=== PATIENT | female | born 1970 | race Caucasian/White ===

== ENCOUNTER 2021-05-01 10:58 | Inpatient (IN) | payer OTHER ==
[2021-04-27 09:35] LABS: BASOPHILS % (AUTO) 0.4 % (0-1); EOSINOPHILS # (AUTO) 0.1 X10'3 (0-0.9); EOSINOPHILS % (AUTO) 1.2 % (0-6); HEMATOCRIT 42.2 % (35.0-45.0); HEMOGLOBIN 14.4 g/dl (12.0-16.0); LYMPHOCYTES # (AUTO) 1.7 X10'3 (1.1-4.8); LYMPHOCYTES % (AUTO) 31.7 % (21-51); MEAN CORPUSCULAR HEMOGLOBIN 30.2 PG (27.0-31.0); MEAN CORPUSCULAR HGB CONC 34.1 g/dL (33.0-36.5); MEAN CORPUSCULAR VOLUME 88.7 FL (78-98); MEAN PLATELET VOLUME 8.2 FL (7.4-10.4); MONOCYTES # (AUTO) 0.5 X10'3 (0-0.9); NEUTROPHILS # (AUTO) 3.1 X10'3 (1.8-7.7); NEUTROPHILS % (AUTO) 57.7 % (42-75); PLATELET COUNT 235 X10'3 (140-440); RED BLOOD COUNT 4.75 X10'6 (4.20-5.60); RED CELL DISTRIBUTION WIDTH 14.4 % (11.5-14.5); WHITE BLOOD COUNT 5.4 X10'3 (4.5-11.0)
[2021-04-27 09:51] LABS: ALBUMIN 3.6 G/DL (3.4-5.0); ANION GAP 9 (8-16); BLOOD UREA NITROGEN 27 MG/DL (7-18); BUN/CREATININE RATIO 22.9 (6.6-38.0); CALCIUM 8.4 MG/DL (8.5-10.1); CHLORIDE 104 MMOL/L (99-107); CREATININE 1.18 MG/DL (0.40-0.90); GLUCOSE 137 MG/DL (70-104); POTASSIUM 4.1 MMOL/L (3.5-5.1); SODIUM 140 MMOL/L (135-145); eGFR 49 ML/MIN
[2021-04-27 09:55] LABS: PARTIAL THROMBOPLASTIN TIME 28 SECONDS (22-32)
[2021-05-01] VITALS (10 sets, daily range): BP systolic 103–139; BP diastolic 66–89
[~2021-05-01] VITALS: Ht 167.6 cm; Wt 89.7 kg
[2021-05-01] MEDS ORDERED: diphenhydrAMINE 25mg capsule PO PRN (11:20)
[2021-05-01] MEDS ORDERED: LIDOcaine/PRILOcaine 5gm cream TP ONE (11:20)
[2021-05-01] MEDS ORDERED: LORazepam 0.5 MG tablet PO PRN (11:20)
[2021-05-01] MEDS ORDERED: HYDR25TA5 PO (11:24)
[2021-05-01] MEDS ORDERED: IBUP-24 PO (11:24)
[2021-05-01] MEDS ORDERED: METO-395 PO (11:24)
[2021-05-01] MEDS ORDERED: ESOM20CA PO (11:24)
[2021-05-01] MEDS ORDERED: LISI40TA13 PO (11:24)
[2021-05-01] MEDS: normal saline 1,000 ML IV SCH ×2 (11:30→17:10)
[2021-05-01] MEDS ORDERED: fentaNYL/PF 50MCG/1 ML 2ML syringe ONE (11:51)
[2021-05-01] MEDS ORDERED: midazolam 1 mg/ML 2ml injection ONE (11:51)
[2021-05-01] MEDS ORDERED: LIDOcaine 1% (10mg/ml)w/preservative injection 20ml MDV ONE (11:51)
[2021-05-01] MEDS ORDERED: iohexol 350MG/ML 100ml bottle IV ONE (11:51)
[2021-05-01] MEDS ORDERED: verapamil 2.5 mg/ml inj IV ONE (12:04)
[2021-05-01] MEDS ORDERED: nitroGLYCERIN-Tridil 50MG/D5W 250 ML IV ONE (12:04)
[2021-05-01] MEDS ORDERED: heparin 1,000unit/ml 10ml vial 10 ML ONE (12:04)
[2021-05-01] MEDS ORDERED: ondansetron/PF 4mg/2ml inj IV PRN (14:05)
[2021-05-01] MEDS ORDERED: proCHLORperazine 10 MG/2 ml inj IV PRN (14:10)
[2021-05-01] MEDS ORDERED: OXAZEpam 15mg capsule PO PRN (14:10)
[2021-05-01] MEDS ORDERED: gabapentin 400mg capsule PO ONE ×2 (15:05→20:40)
[2021-05-01] MEDS ORDERED: cefazolin/dext.iso 2gm/50ml 50 ML IV ONE (15:05)
[2021-05-01] MEDS ORDERED: MESSAGE TO NURSING PO ONE ×4 (15:05)
--- NOTE | 2021-05-01 15:27 | NUR ---
Left a message for Dr. Ferro for new antibiotic prior to surgery, request per pharmacy.
--- NOTE | 2021-05-01 15:35 | NUR ---
Contacted Brandon with [facility], he is aware of patient status and will attempt to be here today.
--- NOTE | 2021-05-01 15:50 | NUR ---
Problems reprioritized. Patient report given, questions answered & plan of care reviewed with Chavez RN.
--- NOTE | 2021-05-01 16:07 | NUR ---
Pt was transferred to PCU. Radial site stable, no s/s of bleeding or infection. Pt ate 100% of lunch tray before departing. Pt was up to bathroom, x1 and voided.
--- NOTE | 2021-05-01 16:15 | NUR ---
Patient in room PCU 3011. I have received report from Cherelle BUTCHER and had the opportunity to ask questions and assume patient care.
--- NOTE | 2021-05-01 16:45 | NUR ---
Call to MD Ferro regarding antibiotic that was ordered and pt's PCN allergy MD aware of allergy and sensitivity. No orders given to change antibiotic.
[2021-05-01] MEDS ORDERED: cefazolin/dext.iso 2gm/50ml 100 ML IV ONE (16:55)
[2021-05-01 17:12] LABS: ALBUMIN 3.4 G/DL (3.4-5.0); ANION GAP 8 (8-16); BLOOD UREA NITROGEN 14 MG/DL (7-18); BUN/CREATININE RATIO 11.6 (6.6-38.0); CALCIUM 8.4 MG/DL (8.5-10.1); CHLORIDE 101 MMOL/L (99-107); CREATININE 1.21 MG/DL (0.40-0.90); GLUCOSE 136 MG/DL (70-104); SODIUM 137 MMOL/L (135-145); TOTAL CARBON DIOXIDE 27.9 MMOL/L (24-32); eGFR 47 ML/MIN
[2021-05-01 17:18] LABS: PARTIAL THROMBOPLASTIN TIME 27 SECONDS (22-32)
[2021-05-01] MEDS ORDERED: magnesium 4gm in 100ml NS 100 ML IV PRN (17:55)
[2021-05-01] MEDS ORDERED: magnesium Cl slow-release 64mg tablet PO PRN (17:55)
[2021-05-01] MEDS ORDERED: potassium Cl 40MEQ/1/2NS 520ml 520 ML IV PRN (17:55)
--- NOTE | 2021-05-01 18:00 | NUR ---
Patient in room PCU 3011. I have received report from Gabbie BUTCHER and had the opportunity to ask questions and assume patient care.
--- NOTE | 2021-05-01 18:09 | NUR ---
Problems reprioritized. Patient report given, questions answered & plan of care reviewed with jame Vasquez.
--- NOTE | 2021-05-01 18:12 | NUR ---
[place] documentation: I have reviewed and agree with all interventions, assessments performed and documented by Chavez RN. [place] Medication Administration: For this medication-pass time frame, all medication were reviewed, dispensed, administered and documented per hospital policy by Chavez RN.
[2021-05-01] MEDS: potassium Cl 20 mEq SR tablet PO PRN (18:57)
[2021-05-01] MEDS: K and/or MAG REPLACEMENT MC SCH (20:00)
[2021-05-01] MEDS ORDERED: metoprolol tartrate 12.5mg (1/2 tablet) PO SCH (20:00)
[2021-05-01] MEDS: sod chloride 0.9% 10ml flush syringe IV SCH (20:00)
[2021-05-01] MEDS ORDERED: dextrose 50%-water 50ml dispensing syringe IV PRN (20:40)
[2021-05-01] MEDS ORDERED: MALTODEXTRIN/FRUCTOSE 0.68 KCAL/ML LIQUID 296ML BOTTLE PO ONE (20:40)
[2021-05-01] MEDS ORDERED: vancomycin/NS 1 GM ADD-VANTAGE 250 ML IV ONE (20:40)
[2021-05-01] MEDS ORDERED: insulin glargine (Lantus) pen - multi-dose SQ PRN (20:40)
[2021-05-01] MEDS ORDERED: HYDROchlorothiazide 25mg tablet PO ONE (21:05)
[2021-05-01] MEDS ORDERED: lisinopril 20mg tablet PO SCH (21:05)
[2021-05-01] MEDS: mupirocin 2% nasal ointment 1gm UD NS SCH (21:50)
[2021-05-01] MEDS: HYDROchlorothiazide 25mg tablet PO SCH (21:51)
[2021-05-01] MEDS: lisinopril 20mg tablet PO SCH (21:52)
[2021-05-01 21:53] LABS: ABG BASE EXCESS -0.3 mmol/L (-2.0-2.0); ABG HCO3 23.3 mmol/L (22.0-26.0); ABG OXYGEN SATURATION 95.5 % (94-97); ABG PO2 (T) 75.6 mmHg (75.0-100.0); ALLEN'S TEST POSITIVE; FCOHb 0.3 % (0.0-3.9); FMetHb 0.2 % (0.0-1.5); TOTAL HEMOGLOBIN 14.8 G/dl (12.0-16.0)
[2021-05-01 22:36] LABS: CLARITY,URINE CLEAR (Clear); COLOR,URINE YELLOW (Yellow); GLUCOSE, URINE NEGATIVE (Neg); KETONES,URINE NEGATIVE (Neg); LEUKOCYTE ESTERASE ,URINE NEGATIVE (Neg); NITRITES, URINE NEGATIVE (Neg); OCCULT BLOOD,URINE TRACE-INTACT (Neg); PH,URINE 5.5 (4.8-8.0); PROTEIN,URINE NEGATIVE (Neg); UROBILINOGEN,URINE 0.2 E.U/dL (0.2-1.0)
[2021-05-01 22:55] LABS: UA COLLECTION TYPE CLN CATCH MIDSTREAM
[2021-05-01 22:58] LABS: BACTERIA,URINE NONE SEEN /HPF (Neg); MUCUS STRANDS NONE SEEN /LPF (Neg); RBC,URINE 0-2 /HPF (0-2); SQUAMOUS EPITHELIAL CELL,UR FEW /LPF (FEW); WBC,URINE NONE SEEN /HPF (0-4)
[2021-05-02] VITALS (19 sets, daily range): BP systolic 92–133; BP diastolic 52–77
[2021-05-02] MEDS: potassium Cl 20 mEq SR tablet PO PRN ×2 (00:26→05:26)
[2021-05-02] MEDS ORDERED: ceFAZolin 1000mg inj ONE (05:24)
[2021-05-02] MEDS ORDERED: LIDOcaine 1% (10mg/ml) 2ml vial ONE (05:24)
[2021-05-02] MEDS ORDERED: epiNEPHrine 1 mg/ml inj ONE (05:24)
[2021-05-02] MEDS ORDERED: BUPIVAcaine 0.5% inj/PF 30 ML ONE (05:25)
[2021-05-02] MEDS ORDERED: sodium bicarbonate (8.4%) 1 mEq/ml syringe ONE (05:30)
[2021-05-02] MEDS ORDERED: heparin 1,000 units/ml 10ml inj ONE (05:30)
[2021-05-02] MEDS ORDERED: aminocaproic acid 250 MG/1 ML inj. ONE (05:30)
[2021-05-02] MEDS ORDERED: methylPREDNISolone sod. succ. 500mg inj ONE (05:30)
[2021-05-02] MEDS ORDERED: albumin (human) 25% 100 ML IV solution IV ONE (05:30)
[2021-05-02] MEDS ORDERED: LORazepam 2 mg/ml vial IV ONE (06:00)
[2021-05-02] MEDS ORDERED: famotidine 20mg tablet PO ONE (06:00)
--- NOTE | 2021-05-02 06:18 | NUR ---
Patient in room PCU 3011. I have received report from DMITRIY BUTCHER and had the opportunity to ask questions and assume patient care.
[2021-05-02 06:25] LABS: BASOPHILS % (AUTO) 0.4 % (0-1); EOSINOPHILS # (AUTO) 0.1 X10'3 (0-0.9); EOSINOPHILS % (AUTO) 1.5 % (0-6); LYMPHOCYTES # (AUTO) 1.9 X10'3 (1.1-4.8); LYMPHOCYTES % (AUTO) 30.8 % (21-51); MEAN CORPUSCULAR HEMOGLOBIN 30.6 PG (27.0-31.0); MEAN CORPUSCULAR HGB CONC 33.9 g/dL (33.0-36.5); MEAN CORPUSCULAR VOLUME 90.1 FL (78-98); MEAN PLATELET VOLUME 8.7 FL (7.4-10.4); MONOCYTES # (AUTO) 0.5 X10'3 (0-0.9); MONOCYTES % (AUTO) 8.7 % (2-12); NEUTROPHILS # (AUTO) 3.7 X10'3 (1.8-7.7); NEUTROPHILS % (AUTO) 58.6 % (42-75); PRE OP HEMATOCRIT 43.2 % (35.0-45.0); PRE OP HEMOGLOBIN 14.6 g/dL (12.0-16.0); PRE OP PLATELET COUNT 227 X10'3 (140-440); RED BLOOD COUNT 4.79 X10'6 (4.20-5.60); RED CELL DISTRIBUTION WIDTH 14.6 % (11.5-14.5)
[2021-05-02 06:26] LABS: ALBUMIN 3.4 G/DL (3.4-5.0); ANION GAP 13 (8-16); BLOOD UREA NITROGEN 16 MG/DL (7-18); BUN/CREATININE RATIO 14.3 (6.6-38.0); CALCIUM 8.7 MG/DL (8.5-10.1); CHLORIDE 101 MMOL/L (99-107); CREATININE 1.12 MG/DL (0.40-0.90); GLUCOSE 127 MG/DL (70-104); MAGNESIUM 1.8 MG/DL (1.5-2.4); POTASSIUM 3.8 MMOL/L (3.5-5.1); SODIUM 138 MMOL/L (135-145); TOTAL CARBON DIOXIDE 24.1 MMOL/L (24-32); eGFR 52 ML/MIN
--- NOTE | 2021-05-02 06:30 | NUR ---
Patient in room PCU 3011. I have received report from jame Vasquez and had the opportunity to ask questions and assume patient care.
--- NOTE | 2021-05-02 06:45 | NUR ---
Problems reprioritized. Patient report given, questions answered & plan of care reviewed with Gabbie BUTCHER.
[2021-05-02] MEDS ORDERED: SUFENTANIL CITRATE 50 MCG/ML 2ml ampule IV ONE (07:34)
[2021-05-02] MEDS ORDERED: rocuronium 10mg/ml inj IV ONE ×3 (07:35→08:56)
[2021-05-02] MEDS ORDERED: propofol inj 20 ML IV ONE (07:35)
[2021-05-02] MEDS ORDERED: MIDAZolam 1 MG/ML 5ML VIAL ONE (07:35)
[2021-05-02] MEDS ORDERED: protamine sulf. 10mg/ml inj. IV ONE (07:42)
[2021-05-02] MEDS ORDERED: sevoflurane 250ml liquid IH ONE (07:42)
[2021-05-02] MEDS ORDERED: NORepinephrine 8 MG in NS 250 ML BAG (32 mcg/ml) IV ONE (07:42)
--- NOTE | 2021-05-02 07:42 | NUR ---
OR STAFF TOOK PATIENT TO CABG
[2021-05-02] MEDS: lisinopril 20mg tablet PO SCH (08:00)
[2021-05-02] MEDS: mupirocin 2% nasal ointment 1gm UD NS SCH ×2 (08:00→21:04)
[2021-05-02] MEDS ORDERED: mupirocin 2% ointment 22GM NS SCH ×2 (08:00→20:00)
[2021-05-02 08:32] LABS: ABG BASE EXCESS -2.4 mmol/L (-2.0-2.0); ABG HCO3 22.2 mmol/L (22.0-26.0); ABG OXYGEN SATURATION 98.8 % (94-97); ABG PCO2 38.1 mmHg (32.0-45.0); ABG PO2 132.8 mmHg (75.0-100.0); CL (ABG) 100 mmol/L (98-110); FCOHb 0.6 % (0.0-3.9); FMetHb 0.3 % (0.0-1.5); FO2Hb 97.9 % (94-97); GLUCOSE (ABG) 186 mg/dl (70-105); IONIZED CA (ABG) 1.16 mmol/L (1.10-1.43); K (ABG) 4.3 mmol/L (3.5-5.0); TOTAL HEMOGLOBIN 14.5 G/dl (12.0-16.0)
[2021-05-02] MEDS ORDERED: heparin 10,000 units/1 ML INJ IR ONE (09:21)
[2021-05-02] MEDS ORDERED: papaverine 30 mg/ml 2ml inj. IA ONE (09:23)
[2021-05-02 09:30] LABS: ABG BASE EXCESS VENOUS -0.5 mmol/L (-2.0 - 2.0); ABG HCO3 VENOUS 24.6 mmol/L (21.0-28.0); ABG PCO2 VENOUS 42.7 mmHg (38.0-51.0); ABG PO2 VENOUS 45.1 mmHg (25.0-35.0); CL (ABG) 97 mmol/L (98-110); FCOHb VENOUS 0.6 % (0.0- 3.9); FHHb VENOUS 18.6 %; FMetHb VENOUS 0.3 % (0.0 - 0.5); FO2Hb VENOUS 80.5 %; GLUCOSE (ABG) 143 mg/dl (70-105); IONIZED CA (ABG) 0.91 mmol/L (1.10-1.43); K (ABG) 3.8 mmol/L (3.5-5.0); TOTAL HEMOGLOBIN 9.8 G/dl (12.0-16.0)
[2021-05-02 09:34] LABS: ABG BASE EXCESS -3.2 mmol/L (-2.0-2.0); ABG HCO3 21.4 mmol/L (22.0-26.0); ABG OXYGEN SATURATION 99.4 % (94-97); ABG PCO2 36.6 mmHg (32.0-45.0); ABG PO2 356.9 mmHg (75.0-100.0); CL (ABG) 99 mmol/L (98-110); FCOHb 0.3 % (0.0-3.9); FMetHb 0.3 % (0.0-1.5); FO2Hb 98.8 % (94-97); GLUCOSE (ABG) 129 mg/dl (70-105); IONIZED CA (ABG) 0.95 mmol/L (1.10-1.43); K (ABG) 3.9 mmol/L (3.5-5.0); TOTAL HEMOGLOBIN 9.8 G/dl (12.0-16.0)
[2021-05-02] MEDS ORDERED: MESSAGE TO NURSING PO ONE (10:00)
[2021-05-02 10:02] LABS: ABG BASE EXCESS -1.4 mmol/L (-2.0-2.0); ABG HCO3 24.1 mmol/L (22.0-26.0); ABG OXYGEN SATURATION 99.4 % (94-97); ABG PCO2 43.8 mmHg (32.0-45.0); ABG PO2 304.1 mmHg (75.0-100.0); CL (ABG) 100 mmol/L (98-110); FCOHb 0.1 % (0.0-3.9); FMetHb 0.3 % (0.0-1.5); GLUCOSE (ABG) 146 mg/dl (70-105); IONIZED CA (ABG) 0.95 mmol/L (1.10-1.43); K (ABG) 4.7 mmol/L (3.5-5.0); TOTAL HEMOGLOBIN 10.7 G/dl (12.0-16.0)
[2021-05-02 10:31] LABS: ABG BASE EXCESS -1.3 mmol/L (-2.0-2.0); ABG HCO3 24.5 mmol/L (22.0-26.0); ABG OXYGEN SATURATION 99.3 % (94-97); CL (ABG) 100 mmol/L (98-110); FMetHb 0.3 % (0.0-1.5); GLUCOSE (ABG) 160 mg/dl (70-105); K (ABG) 4.6 mmol/L (3.5-5.0); TOTAL HEMOGLOBIN 10.2 G/dl (12.0-16.0)
[2021-05-02 10:58] LABS: ABG BASE EXCESS VENOUS 1.4 mmol/L (-2.0 - 2.0); ABG HCO3 VENOUS 27.4 mmol/L (21.0-28.0); ABG PCO2 VENOUS 49.8 mmHg (38.0-51.0); CL (ABG) 100 mmol/L (98-110); FCOHb VENOUS 0.5 % (0.0- 3.9); FHHb VENOUS 14.9 %; FMetHb VENOUS 0.3 % (0.0 - 0.5); FO2Hb VENOUS 84.3 %; GLUCOSE (ABG) 161 mg/dl (70-105); K (ABG) 4.3 mmol/L (3.5-5.0); TOTAL HEMOGLOBIN 9.7 G/dl (12.0-16.0)
[2021-05-02 11:01] LABS: ACTIVATED CLOTTING TIME 104 SEC (101-148)
[2021-05-02] MEDS ORDERED: metoclopramide 5 mg/ml inj IV PRN (11:20)
[2021-05-02] MEDS ORDERED: potassium CL 10mEq/100ml bag 100 ML IV PRN (11:20)
[2021-05-02] MEDS ORDERED: ondansetron/PF 4mg/2ml inj IV PRN (11:20)
[2021-05-02] MEDS ORDERED: Insulin Reg/NS 100units/100mL 100 ML IV SCH (11:20)
[2021-05-02] MEDS ORDERED: potassium Cl 20 mEq SR tablet PO PRN (11:20)
[2021-05-02] MEDS ORDERED: sodium phosphate inj. 30 MMOL in dextrose 5%-water 250 ML IV PRN (11:20)
[2021-05-02] MEDS ORDERED: NORepinephrine 8mg/ 250ml NS 250 ML IV PRN (11:20)
[2021-05-02] MEDS ORDERED: pantoprazole 40 MG vial IV ONE (11:20)
[2021-05-02] MEDS ORDERED: dextrose 50%-water 50ml dispensing syringe IV PRN (11:20)
[2021-05-02] MEDS ORDERED: acetaminophen 325mg tablet PO PRN ×2 (11:20)
[2021-05-02] MEDS ORDERED: magnesium hydroxide 30ml (MOM) UD suspension PO PRN (11:20)
[2021-05-02] MEDS ORDERED: potassium Cl 40MEQ/250ML bag 250 ML IV PRN (11:20)
[2021-05-02] MEDS ORDERED: mineral oil 133ml enema RC PRN (11:20)
[2021-05-02] MEDS ORDERED: magnesium 4gm in 100ml NS 100 ML IV PRN (11:20)
[2021-05-02] MEDS ORDERED: potassium Cl 40MEQ/1/2NS 520ml 520 ML IV PRN (11:20)
[2021-05-02] MEDS ORDERED: bisacodyl 10mg suppository rectal RC PRN (11:20)
[2021-05-02] MEDS ORDERED: magnesium citrate 296ml oral solution PO PRN (11:20)
[2021-05-02] MEDS ORDERED: niCARDipine-NS 40mg/200ml IVPB 200 ML IV PRN (11:20)
[2021-05-02] MEDS ORDERED: insulin glargine (Lantus) pen - multi-dose SQ PRN (11:20)
[2021-05-02] MEDS ORDERED: nitroGLYCERIN-Tridil 50MG/D5W 250 ML IV SCH (11:20)
[2021-05-02] MEDS ORDERED: morphine 4 MG/ML inj SYRINge IV PRN (11:20)
[2021-05-02] MEDS ORDERED: Neutra Phos packet PO PRN (11:20)
[2021-05-02 11:58] LABS: ABG BASE EXCESS -0.3 mmol/L (-2.0-2.0); ABG HCO3 25.4 mmol/L (22.0-26.0); ABG OXYGEN SATURATION 99.1 % (94-97); ABG PCO2 (T) 43.6 mmHg (32.0-45.0); ABG PO2 (T) 197.7 mmHg (75.0-100.0); FCOHb 0.4 % (0.0-3.9); FMetHb 0.3 % (0.0-1.5); FO2Hb 98.4 % (94-97); PATIENT TEMPERATURE 36.1; PEEP 5 cm H2O; RESPIRATORY RATE 12 b/min; TIDAL VOLUME 580 mL; TOTAL HEMOGLOBIN 14.2 G/dl (12.0-16.0)
--- NOTE | 2021-05-02 12:03 | NUR ---
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 Pt would benefit from nutrition therapy education once stable. Will continue to follow. Addendum: 05/02/21 at [address] Amended: Links added.
[2021-05-02 12:11] LABS: BASOPHILS % (AUTO) 0.1 % (0-1); EOSINOPHILS % (AUTO) 0.2 % (0-6); HEMATOCRIT 39.4 % (35.0-45.0); HEMOGLOBIN 13.5 g/dl (12.0-16.0); LYMPHOCYTES # (AUTO) 1.5 X10'3 (1.1-4.8); LYMPHOCYTES % (AUTO) 9.9 % (21-51); MEAN CORPUSCULAR HEMOGLOBIN 30.2 PG (27.0-31.0); MEAN CORPUSCULAR HGB CONC 34.4 g/dL (33.0-36.5); MEAN CORPUSCULAR VOLUME 87.9 FL (78-98); MEAN PLATELET VOLUME 8.2 FL (7.4-10.4); MONOCYTES # (AUTO) 0.8 X10'3 (0-0.9); MONOCYTES % (AUTO) 5.4 % (2-12); NEUTROPHILS # (AUTO) 12.4 X10'3 (1.8-7.7); NEUTROPHILS % (AUTO) 84.4 % (42-75); PLATELET COUNT 182 X10'3 (140-440); RED BLOOD COUNT 4.48 X10'6 (4.20-5.60); RED CELL DISTRIBUTION WIDTH 14.1 % (11.5-14.5); WHITE BLOOD COUNT 14.7 X10'3 (4.5-11.0)
[2021-05-02 12:23] LABS: PARTIAL THROMBOPLASTIN TIME 26 SECONDS (22-32)
[2021-05-02] MEDS: sodium chloride 0.45% 1,000 ML IV SCH (12:25)
[2021-05-02] MEDS: albumin (Human) 5% 250ml 250 ML IV PRN ×3 (12:25→16:07)
[2021-05-02 12:32] LABS: ALANINE AMINOTRANSFERASE 29 U/L (12-78); ALBUMIN/GLOBULIN RATIO 1.2 (1.1-1.5); ALKALINE PHOSPHATASE 40 IU/L (46-116); ANION GAP 9 (8-16); ASPARTATE AMINO TRANSFERASE 49 U/L (10-37); BILIRUBIN,TOTAL 0.6 MG/DL (0.1-1.0); BLOOD UREA NITROGEN 10 MG/DL (7-18); CALCIUM 6.8 MG/DL (8.5-10.1); CHLORIDE 103 MMOL/L (99-107); GLUCOSE 197 MG/DL (70-104); MAGNESIUM 1.7 MG/DL (1.5-2.4); SODIUM 138 MMOL/L (135-145); TOTAL CARBON DIOXIDE 25.7 MMOL/L (24-32); TOTAL PROTEIN 5.5 G/DL (6.4-8.2); eGFR 59 ML/MIN
[2021-05-02 12:46] LABS: POTASSIUM 4.2 MMOL/L (3.5-5.1)
[2021-05-02] MEDS: gabapentin 300mg capsule PO SCH ×2 (12:53→21:04)
[2021-05-02] MEDS: magnesium 2GM in 50ml NS 50 ML IV PRN (13:19)
[2021-05-02] MEDS: potassium Cl 20mEq/100mL bag 100 ML IV PRN (13:32)
[2021-05-02] MEDS: morphine 4 MG/ML inj SYRINge IV PRN ×2 (13:38→16:19)
[2021-05-02] MEDS: sodium phosphate inj. 15 MMOL in dextrose 5%-water 250 ML IV PRN (13:50)
[2021-05-02] MEDS: ceFAZolin/D5W- 1GM premix 50 ML IV SCH (16:42)
[2021-05-02 17:22] LABS: ABG BASE EXCESS -3.4 mmol/L (-2.0-2.0); ABG HCO3 21.7 mmol/L (22.0-26.0); ABG OXYGEN SATURATION 96.2 % (94-97); ABG PO2 (T) 86.1 mmHg (75.0-100.0); FCOHb 0.2 % (0.0-3.9); FMetHb 0.2 % (0.0-1.5); FO2Hb 95.8 % (94-97); PATIENT TEMPERATURE 36.3; PEEP 5 cm H2O; TIDAL VOLUME 561 mL; TOTAL HEMOGLOBIN 12.6 G/dl (12.0-16.0)
[2021-05-02] MEDS: ketorolac tromethamine 15mg/ml inj. IV SCH ×2 (17:25→21:05)
[2021-05-02 17:42] LABS: BASOPHILS % (AUTO) 0.1 % (0-1); EOSINOPHILS % (AUTO) 0 % (0-6); HEMATOCRIT 34.6 % (35.0-45.0); HEMOGLOBIN 11.5 g/dl (12.0-16.0); LYMPHOCYTES # (AUTO) 0.7 X10'3 (1.1-4.8); LYMPHOCYTES % (AUTO) 4.2 % (21-51); MEAN CORPUSCULAR HEMOGLOBIN 30.1 PG (27.0-31.0); MEAN CORPUSCULAR HGB CONC 33.2 g/dL (33.0-36.5); MEAN CORPUSCULAR VOLUME 90.7 FL (78-98); MEAN PLATELET VOLUME 8.1 FL (7.4-10.4); MONOCYTES # (AUTO) 0.8 X10'3 (0-0.9); MONOCYTES % (AUTO) 4.9 % (2-12); NEUTROPHILS # (AUTO) 15.1 X10'3 (1.8-7.7); NEUTROPHILS % (AUTO) 90.8 % (42-75); PLATELET COUNT 179 X10'3 (140-440); RED BLOOD COUNT 3.81 X10'6 (4.20-5.60); RED CELL DISTRIBUTION WIDTH 14.4 % (11.5-14.5); WHITE BLOOD COUNT 16.6 X10'3 (4.5-11.0)
[2021-05-02 17:59] LABS: ALANINE AMINOTRANSFERASE 31 U/L (12-78); ALBUMIN/GLOBULIN RATIO 1.7 (1.1-1.5); ALKALINE PHOSPHATASE 36 IU/L (46-116); ANION GAP 13 (8-16); ASPARTATE AMINO TRANSFERASE 47 U/L (10-37); BILIRUBIN,TOTAL 0.6 MG/DL (0.1-1.0); BLOOD UREA NITROGEN 12 MG/DL (7-18); BUN/CREATININE RATIO 8.6 (6.6-38.0); CALCIUM 6.9 MG/DL (8.5-10.1); CHLORIDE 104 MMOL/L (99-107); CREATININE 1.39 MG/DL (0.40-0.90); GLUCOSE 284 MG/DL (70-104); POTASSIUM 4.5 MMOL/L (3.5-5.1); SODIUM 138 MMOL/L (135-145); TOTAL CARBON DIOXIDE 21.1 MMOL/L (24-32); TOTAL PROTEIN 6.4 G/DL (6.4-8.2); eGFR 40 ML/MIN
--- NOTE | 2021-05-02 18:30 | NUR ---
Patient in room CICU 2007. I have received report from Sylwia BUTCHER and had the opportunity to ask questions and assume patient care.
[2021-05-02] MEDS: sod chloride 0.9% 10ml flush syringe IV SCH ×2 (18:34→21:05)
[2021-05-02] MEDS: K and/or MAG REPLACEMENT MC SCH ×2 (18:35→20:00)
[2021-05-02] MEDS: normal saline 1,000 ML IV SCH ×2 (18:36→19:22)
[2021-05-02 19:09] LABS: MAGNESIUM 3.9 MG/DL (1.5-2.4); PHOSPHORUS 3.3 MG/DL (2.3-4.5)
[2021-05-02] MEDS: Insulin Reg/NS 100units/100mL 100 ML IV SCH (19:12)
[2021-05-02] MEDS ORDERED: ketorolac tromethamine 15mg/ml inj. IV SCH (20:00)
[2021-05-02] MEDS: sennosides/docusate sodium tablet PO SCH (21:04)
[2021-05-02] MEDS: atorvastatin 10mg tablet PO SCH (21:04)
[2021-05-02] MEDS: HYDROchlorothiazide 25mg tablet PO SCH (21:04)
[2021-05-02] MEDS: oxyCODONE/APAP 10/325mg tablet PO PRN (22:45)
[2021-05-03] VITALS (24 sets, daily range): BP systolic 86–123; BP diastolic 53–75
[2021-05-03] MEDS: ketorolac tromethamine 15mg/ml inj. IV SCH ×2 (01:48→07:33)
[2021-05-03] MEDS: ceFAZolin/D5W- 1GM premix 50 ML IV SCH ×3 (01:51→15:56)
[2021-05-03] MEDS: normal saline 1,000 ML IV SCH ×3 (03:20→23:20)
[2021-05-03 03:38] LABS: BASOPHILS % (AUTO) 0.1 % (0-1); EOSINOPHILS % (AUTO) 0 % (0-6); HEMOGLOBIN 10.9 g/dl (12.0-16.0); LYMPHOCYTES # (AUTO) 0.6 X10'3 (1.1-4.8); LYMPHOCYTES % (AUTO) 3.5 % (21-51); MEAN CORPUSCULAR HEMOGLOBIN 30.3 PG (27.0-31.0); MEAN CORPUSCULAR HGB CONC 34.1 g/dL (33.0-36.5); MEAN CORPUSCULAR VOLUME 88.9 FL (78-98); MEAN PLATELET VOLUME 8.2 FL (7.4-10.4); MONOCYTES # (AUTO) 0.9 X10'3 (0-0.9); MONOCYTES % (AUTO) 4.9 % (2-12); NEUTROPHILS # (AUTO) 16.3 X10'3 (1.8-7.7); NEUTROPHILS % (AUTO) 91.5 % (42-75); PLATELET COUNT 168 X10'3 (140-440); RED CELL DISTRIBUTION WIDTH 14.3 % (11.5-14.5); WHITE BLOOD COUNT 17.8 X10'3 (4.5-11.0)
[2021-05-03] MEDS: Insulin Reg/NS 100units/100mL 100 ML IV SCH (04:16)
[2021-05-03 04:29] LABS: ALANINE AMINOTRANSFERASE 38 U/L (12-78); ALBUMIN 3.6 G/DL (3.4-5.0); ALBUMIN/GLOBULIN RATIO 1.4 (1.1-1.5); ALKALINE PHOSPHATASE 34 IU/L (46-116); ANION GAP 11 (8-16); ASPARTATE AMINO TRANSFERASE 69 U/L (10-37); BILIRUBIN,TOTAL 0.3 MG/DL (0.1-1.0); BLOOD UREA NITROGEN 13 MG/DL (7-18); BUN/CREATININE RATIO 11.1 (6.6-38.0); CALCIUM 7.2 MG/DL (8.5-10.1); CHLORIDE 103 MMOL/L (99-107); CREATININE 1.17 MG/DL (0.40-0.90); GLUCOSE 155 MG/DL (70-104); MAGNESIUM 2.6 MG/DL (1.5-2.4); POTASSIUM 4.1 MMOL/L (3.5-5.1); SODIUM 138 MMOL/L (135-145); TOTAL CARBON DIOXIDE 24.4 MMOL/L (24-32); TOTAL PROTEIN 6.2 G/DL (6.4-8.2); eGFR 49 ML/MIN
[2021-05-03] MEDS: potassium Cl 20mEq/100mL bag 100 ML IV PRN ×2 (05:36→07:35)
--- NOTE | 2021-05-03 06:34 | NUR ---
Problems reprioritized. Patient report given, questions answered & plan of care reviewed with Julián BUTCHER.
[2021-05-03] MEDS: aspirin 325mg tablet, delayed-release (Ecotrin) PO SCH (07:32)
[2021-05-03] MEDS: sennosides/docusate sodium tablet PO SCH ×2 (07:32→20:54)
[2021-05-03] MEDS: gabapentin 300mg capsule PO SCH ×3 (07:32→20:54)
[2021-05-03] MEDS: sodium phosphate inj. 15 MMOL in dextrose 5%-water 250 ML IV PRN (07:33)
[2021-05-03] MEDS: mupirocin 2% nasal ointment 1gm UD NS SCH (07:35)
[2021-05-03] MEDS: lisinopril 20mg tablet PO SCH (08:00)
[2021-05-03] MEDS: sod chloride 0.9% 10ml flush syringe IV SCH ×2 (08:00→21:01)
[2021-05-03] MEDS: K and/or MAG REPLACEMENT MC SCH ×2 (08:00→20:00)
[2021-05-03] MEDS: metoprolol tartrate 12.5mg (1/2 tablet) PO SCH ×2 (08:04→20:53)
[2021-05-03] MEDS: insulin Lispro (HumaLOG) vial - multi-dose SQ SCH ×3 (09:07→19:48)
[2021-05-03] MEDS: oxyCODONE/APAP 10/325mg tablet PO PRN ×2 (09:35→15:50)
[2021-05-03 17:22] LABS: PHOSPHORUS 3.3 MG/DL (2.3-4.5); POTASSIUM 4.4 MMOL/L (3.5-5.1)
--- NOTE | 2021-05-03 18:15 | NUR ---
Patient in room CICU 2008. I have received report from Julián BUTCHER and had the opportunity to ask questions and assume patient care.
--- NOTE | 2021-05-03 18:18 | NUR ---
Problems reprioritized. Patient report given, questions answered & plan of care reviewed with Aurelia BUTCHER.
[2021-05-03] MEDS: HYDROchlorothiazide 25mg tablet PO SCH (20:54)
[2021-05-03] MEDS: atorvastatin 10mg tablet PO SCH (20:55)
[2021-05-04] VITALS (24 sets, daily range): BP systolic 85–118; BP diastolic 47–69
[2021-05-04] MEDS: ceFAZolin/D5W- 1GM premix 50 ML IV SCH (00:15)
[2021-05-04 04:53] LABS: BASOPHILS % (AUTO) 0 % (0-1); EOSINOPHILS % (AUTO) 0 % (0-6); HEMATOCRIT 30.4 % (35.0-45.0); HEMOGLOBIN 10.2 g/dl (12.0-16.0); LYMPHOCYTES # (AUTO) 0.9 X10'3 (1.1-4.8); LYMPHOCYTES % (AUTO) 5.1 % (21-51); MEAN CORPUSCULAR HEMOGLOBIN 30.6 PG (27.0-31.0); MEAN CORPUSCULAR HGB CONC 33.5 g/dL (33.0-36.5); MEAN CORPUSCULAR VOLUME 91.3 FL (78-98); MEAN PLATELET VOLUME 8.9 FL (7.4-10.4); MONOCYTES # (AUTO) 1.1 X10'3 (0-0.9); MONOCYTES % (AUTO) 6.2 % (2-12); NEUTROPHILS % (AUTO) 88.7 % (42-75); PLATELET COUNT 139 X10'3 (140-440); RED BLOOD COUNT 3.33 X10'6 (4.20-5.60); RED CELL DISTRIBUTION WIDTH 14.7 % (11.5-14.5)
[2021-05-04 05:09] LABS: ALBUMIN 3.3 G/DL (3.4-5.0); ANION GAP 4 (8-16); BLOOD UREA NITROGEN 21 MG/DL (7-18); BUN/CREATININE RATIO 17.8 (6.6-38.0); CALCIUM 7.7 MG/DL (8.5-10.1); CHLORIDE 102 MMOL/L (99-107); CREATININE 1.18 MG/DL (0.40-0.90); GLUCOSE 163 MG/DL (70-104); MAGNESIUM 2.4 MG/DL (1.5-2.4); PHOSPHORUS 2.7 MG/DL (2.3-4.5); POTASSIUM 5.5 MMOL/L (3.5-5.1); SODIUM 135 MMOL/L (135-145); TOTAL CARBON DIOXIDE 29.1 MMOL/L (24-32); eGFR 49 ML/MIN
[2021-05-04 05:25] LABS: HEMOGLOBIN A1C 6.6 % (4.5-6.2)
[2021-05-04] MEDS: oxyCODONE/APAP 10/325mg tablet PO PRN ×3 (05:29→23:11)
[2021-05-04] MEDS: magnesium 2GM in 50ml NS 50 ML IV PRN (05:29)
--- NOTE | 2021-05-04 06:26 | NUR ---
Problems reprioritized. Patient report given, questions answered & plan of care reviewed with Julián BUTCHER.
[2021-05-04] MEDS: gabapentin 300mg capsule PO SCH (07:27)
[2021-05-04] MEDS: aspirin 325mg tablet, delayed-release (Ecotrin) PO SCH (07:27)
[2021-05-04] MEDS: metoprolol tartrate 12.5mg (1/2 tablet) PO SCH ×2 (07:27→21:17)
[2021-05-04] MEDS: sennosides/docusate sodium tablet PO SCH ×2 (07:27→20:00)
[2021-05-04] MEDS: pantoprazole 40mg Tablet.DR PO SCH (07:27)
[2021-05-04] MEDS: lisinopril 20mg tablet PO SCH (08:00)
[2021-05-04] MEDS: K and/or MAG REPLACEMENT MC SCH ×2 (08:00→20:00)
[2021-05-04] MEDS: sod chloride 0.9% 10ml flush syringe IV SCH ×2 (08:00→20:00)
[2021-05-04] MEDS: insulin Lispro (HumaLOG) vial - multi-dose SQ SCH ×3 (08:09→18:20)
[2021-05-04] MEDS: insulin glargine (Lantus) pen - multi-dose SQ SCH (08:10)
[2021-05-04] MEDS ORDERED: furosemide 40mg/4ml inj IV ONE (09:15)
[2021-05-04] MEDS: normal saline 1,000 ML IV SCH ×2 (09:20→19:20)
[2021-05-04] MEDS: sodium chloride 0.45% 1,000 ML IV SCH (11:20)
--- NOTE | 2021-05-04 12:15 | NUR ---
Patient offered milk of magnesia for POD 2 bowel regimen; patient reports she is "gassy and would like to hold off for now."
[2021-05-04] MEDS: Insulin Reg/NS 100units/100mL 100 ML IV SCH (15:20)
[2021-05-04] MEDS: atorvastatin 10mg tablet PO SCH (21:16)
[2021-05-04] MEDS: HYDROchlorothiazide 25mg tablet PO SCH (21:18)
[2021-05-05] VITALS (16 sets, daily range): BP systolic 90–122; BP diastolic 47–70
[2021-05-05 03:44] LABS: BASOPHILS % (AUTO) 0.1 % (0-1); EOSINOPHILS % (AUTO) 0.1 % (0-6); HEMATOCRIT 30.6 % (35.0-45.0); HEMOGLOBIN 10.3 g/dl (12.0-16.0); LYMPHOCYTES # (AUTO) 2.4 X10'3 (1.1-4.8); MEAN CORPUSCULAR HEMOGLOBIN 30.1 PG (27.0-31.0); MEAN CORPUSCULAR HGB CONC 33.6 g/dL (33.0-36.5); MEAN CORPUSCULAR VOLUME 89.4 FL (78-98); MEAN PLATELET VOLUME 8.3 FL (7.4-10.4); MONOCYTES # (AUTO) 1.3 X10'3 (0-0.9); MONOCYTES % (AUTO) 7.9 % (2-12); NEUTROPHILS # (AUTO) 12.4 X10'3 (1.8-7.7); NEUTROPHILS % (AUTO) 76.9 % (42-75); PLATELET COUNT 173 X10'3 (140-440); RED BLOOD COUNT 3.42 X10'6 (4.20-5.60); RED CELL DISTRIBUTION WIDTH 14.7 % (11.5-14.5); WHITE BLOOD COUNT 16.1 X10'3 (4.5-11.0)
[2021-05-05 03:58] LABS: ALBUMIN 3.2 G/DL (3.4-5.0); ANION GAP 5 (8-16); BLOOD UREA NITROGEN 37 MG/DL (7-18); BUN/CREATININE RATIO 26.8 (6.6-38.0); CALCIUM 7.8 MG/DL (8.5-10.1); CHLORIDE 99 MMOL/L (99-107); CREATININE 1.38 MG/DL (0.40-0.90); GLUCOSE 113 MG/DL (70-104); POTASSIUM 4.6 MMOL/L (3.5-5.1); SODIUM 135 MMOL/L (135-145); TOTAL CARBON DIOXIDE 30.6 MMOL/L (24-32); eGFR 41 ML/MIN
[2021-05-05] MEDS: oxyCODONE/APAP 10/325mg tablet PO PRN ×3 (04:35→17:57)
[2021-05-05] MEDS: normal saline 1,000 ML IV SCH (05:20)
[2021-05-05] MEDS: sennosides/docusate sodium tablet PO SCH ×2 (06:24→20:17)
[2021-05-05 06:31] LABS: MAGNESIUM 2.4 MG/DL (1.5-2.4); PHOSPHORUS 4.2 MG/DL (2.3-4.5)
[2021-05-05] MEDS: pantoprazole 40mg Tablet.DR PO SCH (07:58)
[2021-05-05] MEDS: metoprolol tartrate 12.5mg (1/2 tablet) PO SCH ×2 (07:58→20:15)
[2021-05-05] MEDS: aspirin 325mg tablet, delayed-release (Ecotrin) PO SCH (07:58)
[2021-05-05] MEDS: sod chloride 0.9% 10ml flush syringe IV SCH ×2 (07:59→20:00)
[2021-05-05] MEDS: K and/or MAG REPLACEMENT MC SCH ×2 (08:00→20:00)
[2021-05-05] MEDS: insulin Lispro (HumaLOG) vial - multi-dose SQ SCH ×3 (08:24→20:20)
[2021-05-05] MEDS: insulin glargine (Lantus) pen - multi-dose SQ SCH (08:25)
[2021-05-05] MEDS ORDERED: magnesium 4gm in 100ml NS 100 ML IV PRN (09:10)
[2021-05-05] MEDS ORDERED: potassium Cl 40MEQ/250ML bag 250 ML IV PRN (09:10)
[2021-05-05] MEDS ORDERED: potassium Cl 20 mEq SR tablet PO PRN (09:10)
[2021-05-05] MEDS ORDERED: diphenhydrAMINE 25mg capsule PO PRN (09:10)
[2021-05-05] MEDS ORDERED: potassium Cl 40MEQ/1/2NS 520ml 520 ML IV PRN (09:10)
[2021-05-05] MEDS ORDERED: potassium Cl 20mEq/100mL bag 100 ML IV PRN (09:10)
[2021-05-05] MEDS ORDERED: magnesium 2GM in 50ml NS 50 ML IV PRN (09:10)
[2021-05-05] MEDS ORDERED: potassium CL 10mEq/100ml bag 100 ML IV PRN (09:10)
--- NOTE | 2021-05-05 10:58 | NUR ---
Patient in room CICU 2008. I have received report from Julián BUTCHER and had the opportunity to ask questions and assume patient care.
--- NOTE | 2021-05-05 11:00 | NUR ---
Problems reprioritized. Patient report given, questions answered & plan of care reviewed with Irma BUTCHER.
--- NOTE | 2021-05-05 13:30 | NUR ---
Patient oriented to room. Call light within reach. Will continue to monitor. Vital signs documented in routine vital signs interventions.
--- NOTE | 2021-05-05 13:30 | NUR ---
Patient sent to [facility] 3011 with all belongings
--- NOTE | 2021-05-05 18:34 | NUR ---
Problems reprioritized. Patient report given, questions answered & plan of care reviewed with Virginia BUTCHER. Patient stable at transfer of care.
[2021-05-05] MEDS: potassium Cl 20 mEq SR tablet PO SCH (20:00)
[2021-05-05] MEDS: magnesium Cl slow-release 64mg tablet PO SCH (20:00)
[2021-05-05] MEDS: HYDROchlorothiazide 25mg tablet PO SCH (20:34)
[2021-05-05] MEDS: atorvastatin 10mg tablet PO SCH (20:34)
[2021-05-06 02:00] VITALS: BP 108/74
[2021-05-06] MEDS: oxyCODONE/APAP 10/325mg tablet PO PRN ×2 (02:03→07:43)
[2021-05-06 06:00] VITALS: BP 125/57
--- NOTE | 2021-05-06 07:03 | NUR ---
Patient in room PCU 3011. I have received report from Rachel BUTCHER and had the opportunity to ask questions and assume patient care.
[2021-05-06 07:23] LABS: ALBUMIN 3.7 G/DL (3.4-5.0); ANION GAP 10 (8-16); BLOOD UREA NITROGEN 33 MG/DL (7-18); BUN/CREATININE RATIO 24.1 (6.6-38.0); CALCIUM 8.7 MG/DL (8.5-10.1); CHLORIDE 94 MMOL/L (99-107); CREATININE 1.37 MG/DL (0.40-0.90); GLUCOSE 113 MG/DL (70-104); PHOSPHORUS 4.7 MG/DL (2.3-4.5); POTASSIUM 3.4 MMOL/L (3.5-5.1); SODIUM 135 MMOL/L (135-145); TOTAL CARBON DIOXIDE 31.3 MMOL/L (24-32); eGFR 41 ML/MIN
--- NOTE | 2021-05-06 07:27 | NUR ---
Problems reprioritized. Patient report given, questions answered & plan of care reviewed with Irma BUTCHER.
[2021-05-06 07:38] LABS: BASOPHILS % (AUTO) 0.1 % (0-1); EOSINOPHILS # (AUTO) 0.2 X10'3 (0-0.9); EOSINOPHILS % (AUTO) 1.5 % (0-6); HEMATOCRIT 39.3 % (35.0-45.0); HEMOGLOBIN 13.2 g/dl (12.0-16.0); LYMPHOCYTES % (AUTO) 22.7 % (21-51); MEAN CORPUSCULAR HEMOGLOBIN 30.2 PG (27.0-31.0); MEAN CORPUSCULAR HGB CONC 33.5 g/dL (33.0-36.5); MEAN CORPUSCULAR VOLUME 90.2 FL (78-98); MEAN PLATELET VOLUME 8.5 FL (7.4-10.4); MONOCYTES % (AUTO) 7.7 % (2-12); NEUTROPHILS # (AUTO) 9.1 X10'3 (1.8-7.7); PLATELET COUNT 290 X10'3 (140-440); RED BLOOD COUNT 4.35 X10'6 (4.20-5.60); RED CELL DISTRIBUTION WIDTH 14.9 % (11.5-14.5); WHITE BLOOD COUNT 13.4 X10'3 (4.5-11.0)
[2021-05-06] MEDS: sennosides/docusate sodium tablet PO SCH (07:43)
[2021-05-06] MEDS: potassium Cl 20 mEq SR tablet PO SCH (07:43)
[2021-05-06] MEDS: aspirin 325mg tablet, delayed-release (Ecotrin) PO SCH (07:43)
[2021-05-06] MEDS: magnesium Cl slow-release 64mg tablet PO SCH (07:43)
[2021-05-06] MEDS: pantoprazole 40mg Tablet.DR PO SCH (07:44)
[2021-05-06 07:45] VITALS: BP_SYST 125
[2021-05-06] MEDS: metoprolol tartrate 12.5mg (1/2 tablet) PO SCH (07:45)
[2021-05-06] MEDS: sod chloride 0.9% 10ml flush syringe IV SCH (07:50)
[2021-05-06] MEDS: K and/or MAG REPLACEMENT MC SCH (07:51)
[2021-05-06] MEDS ORDERED: diphenhydrAMINE 25mg capsule PO PRN (07:55)
[2021-05-06] MEDS ORDERED: LOP12.5T PO (09:29)
[2021-05-06] MEDS ORDERED: ATOR10TA PO (09:29)
[2021-05-06] MEDS ORDERED: ASPI-1071 PO (09:29)
[2021-05-06] MEDS ORDERED: OXYC1TAB17 PO ×2 (09:29)
[2021-05-06] MEDS ORDERED: TRAM50TA2 PO (10:11)
--- NOTE | 2021-05-06 11:29 | NUR ---
Patient safe for discharge per providers orders. Medications and discharge instructions discussed. Belongings sent with patient. PIV discontinued cannula intact. Telemetry discontinued. Patient wheeled to lobby by nursing staff. Went home in private vehicle with spouse.
--- NOTE | 2021-05-06 14:04 | NUR ---
F/u: Pt discharged prior to RD visit. RD called pt home phone provided in EMR and provided verbal CABG ed to pt. Written CABG/HH diet eds w/ RD contact information mailed to pt home address provided in EMR. RD encouraged pt to contact dietitian's office if further questions/concerns. Addendum: 05/06/21 at [address] Amended: Links added.
== END 2021-05-06 11:36 | disposition home or self-care (01) | DRG 233 ==
LOC: SSTAY O 10:58 → PCU 3S 15:11 → CICU 2S 05-02 11:46 → PCU 3S 05-05 13:23
PROVIDERS: ADMIT Thoracic Surgery (Cardiothoracic Vascular Surgery); ATTEND Thoracic Surgery (Cardiothoracic Vascular Surgery)
PROC: 4A023N7 Measurement of Cardiac Sampling and Pressure, Left Heart, Percutaneous Approach (ICD-10-PCS; 2021-05-01)
PROC: B2111ZZ Fluoroscopy of Multiple Coronary Arteries using Low Osmolar Contrast (ICD-10-PCS; 2021-05-01)
PROC: B2151ZZ Fluoroscopy of Left Heart using Low Osmolar Contrast (ICD-10-PCS; 2021-05-01)
PROC: 021209W Bypass Coronary Artery, Three Arteries from Aorta with Autologous Venous Tissue, Open Approach (ICD-10-PCS; 2021-05-02)
PROC: 06BQ4ZZ Excision of Left Saphenous Vein, Percutaneous Endoscopic Approach (ICD-10-PCS; 2021-05-02)
PROC: 5A1221Z Performance of Cardiac Output, Continuous (ICD-10-PCS; 2021-05-02)
PROC: B24BZZ4 Ultrasonography of Heart with Aorta, Transesophageal (ICD-10-PCS; 2021-05-02)
PROC: 02100Z9 Bypass Coronary Artery, One Artery from Left Internal Mammary, Open Approach (ICD-10-PCS; principal; 2021-05-02 07:42)
DX: I25.110 Atherosclerotic heart disease of native coronary artery with unstable angina pectoris (principal); N17.0 Acute kidney failure with tubular necrosis; L29.9 Pruritus, unspecified; N18.30 Chronic kidney disease, stage 3 unspecified; I12.9 Hypertensive chronic kidney disease with stage 1 through stage 4 chronic kidney disease, or unspecified chronic kidney disease; Z20.822 Contact with and (suspected) exposure to COVID-19; E66.9 Obesity, unspecified; K21.9 Gastro-esophageal reflux disease without esophagitis; Z88.0 Allergy status to penicillin; Z68.31 Body mass index [BMI] 31.0-31.9, adult; Z88.5 Allergy status to narcotic agent
CPT/HCPCS: 93312; 93325; 93458; Z7506; Z7508; 36415; 36600; 71045; 80048; 80053; 81001; 82330; 82435; 82803; 82947; 82948; 83036; 83735; 84100; 84132; 84295; 85018; 85025; 85347; 85610; 85730; 86885; 86900; 86901; 86920; 87081; 87635; 93005; 93880; 93971; 94002; 94010; 94760; 97116; 97161; 97530; 97535; 99152; A4618; A4620; A6258; A6446; A6449; A7000; A7048; C1751; C1769; C1894; C9113; G0378; J0171; J0690; J1644; J1815; J1885; J1940; J2001; J2060; J2150; J2250; J2270; J2405; J2440; J2704; J2720; J2930; J3010; J3370; J3475; J3480; J3490; J7030; J7040; J7050; J7060; J7120; P9045; P9047; Q0163; Q9967

== ENCOUNTER 2021-05-13 21:33 | Emergency (ER) | payer OTHER ==
[~2021-05-13] VITALS: Ht 167.6 cm; Wt 93.6 kg
[~2021-05-13 21:33] MED LIST: ASPI-1071 PO; ATOR10TA PO; ESOM20CA PO; HYDR25TA5 PO; IBUP-24 PO; LOP12.5T PO; TRAM50TA2 PO
[2021-05-13 22:34] LABS: BASOPHILS % (AUTO) 0.5 % (0-1); EOSINOPHILS # (AUTO) 0.1 X10'3 (0-0.9); EOSINOPHILS % (AUTO) 1.5 % (0-6); HEMATOCRIT 31.5 % (35.0-45.0); HEMOGLOBIN 10.7 g/dl (12.0-16.0); LYMPHOCYTES # (AUTO) 1.6 X10'3 (1.1-4.8); LYMPHOCYTES % (AUTO) 20.9 % (21-51); MEAN CORPUSCULAR HEMOGLOBIN 30.3 PG (27.0-31.0); MEAN CORPUSCULAR VOLUME 89.1 FL (78-98); MEAN PLATELET VOLUME 8.1 FL (7.4-10.4); MONOCYTES # (AUTO) 0.4 X10'3 (0-0.9); MONOCYTES % (AUTO) 5.6 % (2-12); NEUTROPHILS # (AUTO) 5.6 X10'3 (1.8-7.7); NEUTROPHILS % (AUTO) 71.5 % (42-75); PLATELET COUNT 215 X10'3 (140-440); RED BLOOD COUNT 3.54 X10'6 (4.20-5.60); RED CELL DISTRIBUTION WIDTH 14.6 % (11.5-14.5); WHITE BLOOD COUNT 7.9 X10'3 (4.5-11.0)
[2021-05-13 22:45] LABS: ALANINE AMINOTRANSFERASE 30 U/L (12-78); ALBUMIN 3.2 G/DL (3.4-5.0); ALBUMIN/GLOBULIN RATIO 0.9 (1.1-1.5); ALKALINE PHOSPHATASE 66 IU/L (46-116); ANION GAP 11 (8-16); ASPARTATE AMINO TRANSFERASE 21 U/L (10-37); BILIRUBIN,TOTAL 0.3 MG/DL (0.1-1.0); BLOOD UREA NITROGEN 24 MG/DL (7-18); CALCIUM 8.2 MG/DL (8.5-10.1); CHLORIDE 101 MMOL/L (99-107); CREATININE 1.26 MG/DL (0.40-0.90); GLUCOSE 170 MG/DL (70-104); POTASSIUM 3.4 MMOL/L (3.5-5.1); SODIUM 137 MMOL/L (135-145); TOTAL PROTEIN 6.7 G/DL (6.4-8.2); eGFR 45 ML/MIN
[2021-05-13] MEDS ORDERED: iohexol 350MG/ML 100ml bottle IV ONE (23:48)
--- NOTE | 2021-05-14 01:12 | NUR ---
trop taken to lab.
[2021-05-14 02:49] VITALS: BP 140/86
== END 2021-05-14 02:48 | disposition home or self-care (01) ==
LOC: ER 21:35
DX: J90 Pleural effusion, not elsewhere classified (principal); R07.89 Other chest pain; R42 Dizziness and giddiness; R53.1 Weakness; Z95.1 Presence of aortocoronary bypass graft; Z88.0 Allergy status to penicillin; Z88.8 Allergy status to other drugs, medicaments and biological substances; Z79.82 Long term (current) use of aspirin; Z79.899 Other long term (current) drug therapy
CPT/HCPCS: 36415; 71045; 71275; 76604; 80053; 83880; 84484; 85025; 93005; 99285; Q9967

== ENCOUNTER 2023-10-24 10:29 | Day surgery (SDC) | payer BC, OTHER ==
[2023-10-17 08:55] LABS: BASOPHILS % (AUTO) 0.5 % (0-1); EOSINOPHILS # (AUTO) 0.1 X10'3 (0-0.9); EOSINOPHILS % (AUTO) 1.5 % (0-6); HEMATOCRIT 44.5 % (35.0-45.0); HEMOGLOBIN 15.2 g/dl (12.0-16.0); LYMPHOCYTES % (AUTO) 32.8 % (21-51); MEAN CORPUSCULAR HEMOGLOBIN 30.9 PG (27.0-31.0); MEAN CORPUSCULAR VOLUME 90.7 FL (78-98); MEAN PLATELET VOLUME 7.6 FL (7.4-10.4); MONOCYTES # (AUTO) 0.5 X10'3 (0-0.9); MONOCYTES % (AUTO) 8.7 % (2-12); NEUTROPHILS # (AUTO) 3.4 X10'3 (1.8-7.7); NEUTROPHILS % (AUTO) 56.5 % (42-75); PLATELET COUNT 223 X10'3 (140-440); RED BLOOD COUNT 4.91 X10'6 (4.20-5.60); RED CELL DISTRIBUTION WIDTH 13.7 % (11.5-14.5)
[2023-10-17 09:13] LABS: APTT 29 SECONDS (22-32); INR 0.9 INR
[2023-10-17 09:14] LABS: ALANINE AMINOTRANSFERASE 68 U/L (12-78); ALBUMIN 3.7 G/DL (3.4-5.0); ALBUMIN/GLOBULIN RATIO 0.9 (1.1-1.5); ALKALINE PHOSPHATASE 94 IU/L (46-116); ANION GAP 8 (8-16); ASPARTATE AMINO TRANSFERASE 25 U/L (10-37); BILIRUBIN,TOTAL 0.7 MG/DL (0.1-1.0); BLOOD UREA NITROGEN 19 MG/DL (7-18); CALCIUM 8.9 MG/DL (8.5-10.1); CHLORIDE 100 MMOL/L (99-107); CHOL/HDL RATIO 3.7 (0.00-4.99); CHOLESTEROL 183 MG/DL (0-200); CREATININE 1.12 MG/DL (0.40-0.90); GLUCOSE 176 MG/DL (70-104); HDL CHOLESTEROL 50 MG/DL (35-60); LDL CHOLESTEROL 108 MG/DL (50-100); POTASSIUM 3.9 MMOL/L (3.5-5.1); SODIUM 136 MMOL/L (135-145); TOTAL CARBON DIOXIDE 28.4 MMOL/L (24-32); TOTAL PROTEIN 7.6 G/DL (6.4-8.2); TRIGLYCERIDES 107 MG/DL (20-135); eGFR 51 ML/MIN
[~2023-10-24] VITALS: Ht 167.6 cm; Wt 94.3 kg
[2023-10-24] VITALS (8 sets, daily range): BP systolic 101–127; BP diastolic 61–96; PULSE 56–71; RESP 9–16; TEMP 98.4; O2SAT 93–100
[~2023-10-24 10:29] MED LIST changes: -TRAM50TA2 PO
[2023-10-24] MEDS ORDERED: LOP12.5T PO (10:58)
[2023-10-24] MEDS ORDERED: ATOR40TA72 PO (10:58)
[2023-10-24] MEDS ORDERED: LISI40TA13 PO (10:58)
[2023-10-24] MEDS ORDERED: NITR0.4T51 SL (10:58)
[2023-10-24] MEDS ORDERED: RANO10005 PO (10:58)
[2023-10-24] MEDS ORDERED: CLOP75TA34 PO (10:58)
[2023-10-24] MEDS ORDERED: normal saline 1,000 ML IV SCH (11:00)
[2023-10-24] MEDS ORDERED: LORazepam 0.5 MG tablet PO PRN (11:00)
[2023-10-24] MEDS ORDERED: diphenhydrAMINE 25mg capsule PO PRN (11:00)
[2023-10-24] MEDS ORDERED: ASPI81TA52 PO (11:01)
[2023-10-24] MEDS ORDERED: iohexol 350MG/ML 100ml bottle IV ONE ×3 (12:16→13:25)
[2023-10-24] MEDS ORDERED: LIDOcaine 1% 30ml preserv. free vial ONE (12:16)
[2023-10-24] MEDS ORDERED: midazolam 1 mg/ML 2ml injection ONE (12:16)
[2023-10-24] MEDS ORDERED: fentaNYL/PF 50MCG/1 ML 2ML syringe ONE (12:16)
[2023-10-24] MEDS ORDERED: heparin 1,000unit/ml 10ml vial 10 ML ONE (13:06)
[2023-10-24] MEDS ORDERED: atropine 0.1mg/ml 10ml syringe ONE (13:26)
[2023-10-24] MEDS ORDERED: nitroGLYCERIN 0.4mg SUBLingual tab SL ONE (14:00)
[2023-10-24] MEDS ORDERED: HYDROcodone/acetaminophen 10/325mg tab PO PRN (15:15)
[2023-10-24] MEDS ORDERED: proCHLORperazine 10 MG/2 ml inj IV PRN (15:15)
[2023-10-24] MEDS ORDERED: nitroGLYCERIN 0.4mg SUBLingual tab SL PRN (15:15)
[2023-10-24] MEDS ORDERED: ondansetron/PF 4mg/2ml inj IV PRN (15:15)
[2023-10-24] MEDS ORDERED: HYDROcodone/acetaminophen 5mg/325mg tablet PO PRN (15:15)
[2023-10-24] MEDS ORDERED: OXAZEpam 15mg capsule PO PRN (15:15)
== END 2023-10-24 17:30 | disposition home or self-care (01) ==
LOC: SSTAY O 10:29
PROVIDERS: ATTEND Student in an Organized Health Care Education/Training Program
DX: R07.89 Other chest pain (principal); T82.855A Stenosis of coronary artery stent, initial encounter; I25.10 Atherosclerotic heart disease of native coronary artery without angina pectoris; I10 Essential (primary) hypertension; E78.5 Hyperlipidemia, unspecified; Z91.040 Latex allergy status; Z88.0 Allergy status to penicillin; Z88.5 Allergy status to narcotic agent; Z79.899 Other long term (current) drug therapy; Z79.82 Long term (current) use of aspirin; Z79.01 Long term (current) use of anticoagulants
CPT/HCPCS: 36415; 80053; 80061; 85025; 85610; 85730; 93005; 93458; 99152; 99153; C1874; C9600; J0461; J1644; J2250; J3010; J3490; J7030; Q0163; Q9967; A6258; C1725; C1751; C1760; C1769

== ENCOUNTER 2024-02-29 19:05 | Inpatient (IN) | payer OTHER ==
[~2024-02-29] VITALS: Ht 167.6 cm; Wt 93.2 kg
[~2024-02-29 19:05] MED LIST changes: -ASPI-1071 PO; +ASPI81TA52 PO; -ATOR10TA PO; +ATOR40TA72 PO; +CLOP75TA34 PO; -HYDR25TA5 PO; +LISI40TA13 PO; +NITR0.4T51 SL; +RANO10005 PO
[2024-02-29 19:30] LABS: BASOPHILS % (AUTO) 0.3 % (0-1); EOSINOPHILS % (AUTO) 0.3 % (0-6); HEMATOCRIT 43.5 % (35.0-45.0); HEMOGLOBIN 14.7 g/dl (12.0-16.0); LYMPHOCYTES # (AUTO) 1.6 X10'3 (1.1-4.8); LYMPHOCYTES % (AUTO) 14.2 % (21-51); MEAN CORPUSCULAR HEMOGLOBIN 30.5 PG (27.0-31.0); MEAN CORPUSCULAR HGB CONC 33.7 g/dL (33.0-36.5); MEAN CORPUSCULAR VOLUME 90.6 FL (78-98); MEAN PLATELET VOLUME 8.2 FL (7.4-10.4); MONOCYTES % (AUTO) 9.2 % (2-12); NEUTROPHILS # (AUTO) 8.5 X10'3 (1.8-7.7); PLATELET COUNT 213 X10'3 (140-440); RED BLOOD COUNT 4.81 X10'6 (4.20-5.60); RED CELL DISTRIBUTION WIDTH 14.1 % (11.5-14.5); WHITE BLOOD COUNT 11.2 X10'3 (4.5-11.0)
[2024-02-29 19:45] LABS: ALBUMIN 3.4 G/DL (3.4-5.0); ANION GAP 12 (8-16); BLOOD UREA NITROGEN 18 MG/DL (7-18); CALCIUM 8.6 MG/DL (8.5-10.1); CHLORIDE 99 MMOL/L (99-107); GLUCOSE 148 MG/DL (70-104); POTASSIUM 3.6 MMOL/L (3.5-5.1); PRO BRAIN NATRIURETIC PEPTIDE 149 PG/ML (0-125); SODIUM 137 MMOL/L (135-145); TOTAL CARBON DIOXIDE 25.7 MMOL/L (24-32); eCRCL 52 ML/MIN; eGFR 47 ML/MIN
[2024-02-29] MEDS: aspirin 81mg tab.chew PO ONE (19:45)
[2024-02-29] MEDS: nitroGLYCERIN 1gm ointment UD TP ONE (19:50)
[2024-02-29] MEDS: LORazepam 0.5 MG tablet PO ONE (19:55)
[2024-02-29] MEDS ORDERED: acetaminophen 325mg tablet PO PRN (22:40)
[2024-02-29] MEDS ORDERED: magnesium Cl slow-release 64mg tablet PO PRN (22:40)
[2024-02-29] MEDS ORDERED: mag hydrox/Alum hydrox/simeth 30ml oral suspension PO PRN (22:40)
[2024-02-29] MEDS ORDERED: potassium Cl 40MEQ/1/2NS 520ml 520 ML IV PRN (22:40)
[2024-02-29] MEDS ORDERED: magnesium 4gm in 100ml NS 100 ML IV PRN (22:40)
[2024-02-29] MEDS ORDERED: ondansetron/PF 4mg/2ml inj IV PRN (22:40)
[2024-02-29] MEDS ORDERED: potassium Cl 20 mEq SR tablet PO PRN (22:40)
[2024-02-29] MEDS ORDERED: magnesium 2GM in 50ml NS 50 ML IV PRN (22:40)
[2024-02-29] MEDS ORDERED: magnesium hydroxide 30ml (MOM) UD suspension PO PRN (22:40)
[2024-02-29] MEDS ORDERED: nitroGLYCERIN 0.4mg SUBLingual tab SL PRN (22:45)
[2024-02-29] MEDS ORDERED: metoprolol tartrate 1mg/ml inj IV PRN (22:45)
[2024-02-29 23:10] LABS: APTT 28 SECONDS (22-32); PROTHROMBIN TIME 10.3 SECONDS (9.0-12.0)
[2024-02-29] MEDS: heparin 10,000 units/1 ML INJ IV ONE (23:56)
[2024-02-29] MEDS: heparin 25,000 UNIT/250ml bag 250 ML IV PRN (23:57)
[2024-02-29] MEDS: MESSAGE TO NURSING IV ONE (23:58)
[2024-03-01] VITALS (21 sets, daily range): BP systolic 100–129; BP diastolic 61–77; PULSE 69–115; RESP 16–20; TEMP 97.5–98.2; O2SAT 95–100
[2024-03-01] MEDS: ringers solution, lacted 1,000 ML IV SCH (00:08)
[2024-03-01] MEDS ORDERED: EZET10TA48 PO (00:15)
[2024-03-01] MEDS ORDERED: ROSU40TA22 PO (00:15)
[2024-03-01] MEDS ORDERED: VITAMIN (02:02)
[2024-03-01 07:55] LABS: APTT 39 SECONDS (22-32)
[2024-03-01] MEDS: K and/or MAG REPLACEMENT MC SCH (08:00)
[2024-03-01] MEDS: docusate sod 100mg capsule PO SCH (08:00)
[2024-03-01 08:16] LABS: ALANINE AMINOTRANSFERASE 35 U/L (12-78); ALBUMIN 2.8 G/DL (3.4-5.0); ALBUMIN/GLOBULIN RATIO 0.8 (1.1-1.5); ALKALINE PHOSPHATASE 58 IU/L (46-116); ANION GAP 7 (8-16); ASPARTATE AMINO TRANSFERASE 18 U/L (10-37); BILIRUBIN,TOTAL 0.5 MG/DL (0.1-1.0); BLOOD UREA NITROGEN 15 MG/DL (7-18); BUN/CREATININE RATIO 13.4 (10.0-20.0); CALCIUM 8.3 MG/DL (8.5-10.1); CHLORIDE 104 MMOL/L (99-107); CHOL/HDL RATIO 2.4 (0.00-4.99); CHOLESTEROL 102 MG/DL (0-200); CREATININE 1.12 MG/DL (0.40-0.90); FREE T4 (FREE THYROXINE) 0.99 NG/DL (0.73-1.40); GLUCOSE 136 MG/DL (70-104); HDL CHOLESTEROL 43 MG/DL (35-60); LDL CHOLESTEROL 41 MG/DL (50-100); MAGNESIUM 1.8 MG/DL (1.5-2.4); PHOSPHORUS 3.9 MG/DL (2.3-4.5); POTASSIUM 3.3 MMOL/L (3.5-5.1); SODIUM 136 MMOL/L (135-145); THYROID STIMULATING HORMONE 3.57 ulU/ml (0.34-4.50); TOTAL CARBON DIOXIDE 24.8 MMOL/L (24-32); TOTAL PROTEIN 6.5 G/DL (6.4-8.2); TRIGLYCERIDES 164 MG/DL (20-135); eCRCL 56 ML/MIN; eGFR 51 ML/MIN
[2024-03-01] MEDS: heparin 10,000 units/1 ML INJ IV PRN (08:22)
[2024-03-01] MEDS: MESSAGE TO NURSING IV ONE (08:23)
[2024-03-01 08:29] LABS: HEMOGLOBIN A1C 6.6 % (4.5-6.2)
[2024-03-01] MEDS: atorvastatin 20mg tablet PO SCH (08:30)
[2024-03-01] MEDS: potassium Cl 20 mEq SR tablet PO PRN (08:31)
[2024-03-01] MEDS: lisinopril 20mg tablet PO SCH (08:31)
[2024-03-01] MEDS: ezetimibe 10mg tablet PO SCH (08:32)
[2024-03-01 09:00] LABS: HEMATOCRIT 39.1 % (35.0-45.0); HEMOGLOBIN 13.3 g/dl (12.0-16.0); MEAN CORPUSCULAR HEMOGLOBIN 30.8 PG (27.0-31.0); MEAN CORPUSCULAR VOLUME 90.6 FL (78-98); MEAN PLATELET VOLUME 8.5 FL (7.4-10.4); NEUTROPHILS % (AUTO) 57.4 % (42-75); PLATELET COUNT 191 X10'3 (140-440); RED BLOOD COUNT 4.31 X10'6 (4.20-5.60)
[2024-03-01 09:01] LABS: BASOPHILS % (AUTO) 0.3 % (0-1); EOSINOPHILS % (AUTO) 0.6 % (0-6); LYMPHOCYTES # (AUTO) 2.1 X10'3 (1.1-4.8); LYMPHOCYTES % (AUTO) 30.1 % (21-51); MONOCYTES # (AUTO) 0.8 X10'3 (0-0.9); MONOCYTES % (AUTO) 11.6 % (2-12)
[2024-03-01] MEDS: clopidogrel 75mg tablet PO SCH (09:50)
[2024-03-01] MEDS: aspirin 81mg, enteric-coated 1 TAB TABLET.DR PO SCH (09:50)
[2024-03-01 11:22] LABS: D-DIMER 1.27 MG/L FEU (0-0.50)
[2024-03-01] MEDS: normal saline 1000ml 1,000 ML IV SCH (12:10)
[2024-03-01] MEDS: normal saline 1000ml 1,000 ML IV ONE (12:19)
[2024-03-01] MEDS ORDERED: iohexol 350MG/ML 100ml bottle IV ONE (12:27)
[2024-03-01] MEDS: regadenoson 0.4mg/5ml syringe IV PRN (13:31)
[2024-03-01] MEDS: aminophylline 250mg/10ml inj. IV PRN (14:04)
[2024-03-01] MEDS ORDERED: PANT40TA54 PO (19:01)
[2024-03-01] MEDS ORDERED: METO-395 PO (19:01)
[2024-03-02] MEDS ORDERED: pantoprazole 40mg Tablet.DR PO SCH (07:30)
[2024-03-02] MEDS ORDERED: metoprolol succinate 25mg (24-HOUR) SR. Tablet PO SCH (08:00)
== END 2024-03-01 20:40 | disposition home or self-care (01) | DRG 313 ==
LOC: ER 19:05 → ED HOLD 22:42 → PCU 3S 03-01 01:35
PROVIDERS: ADMIT Surgery Surgical Critical Care; ATTEND Family Medicine
PROC: B32T1ZZ Computerized Tomography (CT Scan) of Left Pulmonary Artery using Low Osmolar Contrast (ICD-10-PCS; principal; 2024-03-01)
PROC: B3201ZZ Computerized Tomography (CT Scan) of Thoracic Aorta using Low Osmolar Contrast (ICD-10-PCS; 2024-03-01)
PROC: B32S1ZZ Computerized Tomography (CT Scan) of Right Pulmonary Artery using Low Osmolar Contrast (ICD-10-PCS; 2024-03-01)
PROC: 4A02XM4 Measurement of Cardiac Total Activity, External Approach (ICD-10-PCS; 2024-03-01)
PROC: 3E033HZ Introduction of Radioactive Substance into Peripheral Vein, Percutaneous Approach (ICD-10-PCS; 2024-03-01)
DX: R07.89 Other chest pain (principal); N17.9 Acute kidney failure, unspecified; Z20.822 Contact with and (suspected) exposure to COVID-19; I25.10 Atherosclerotic heart disease of native coronary artery without angina pectoris; I25.2 Old myocardial infarction; Z95.1 Presence of aortocoronary bypass graft; I10 Essential (primary) hypertension; E78.5 Hyperlipidemia, unspecified; R73.9 Hyperglycemia, unspecified
CPT/HCPCS: 36415; 71045; 71275; 78452; 80048; 80053; 80061; 83036; 83735; 83880; 84100; 84439; 84443; 84484; 85025; 85379; 85610; 85730; 86704; 86705; 87081; 87340; 93005; 93017; 93306; 99285; A9500; G0378; J0280; J1644; J2785; J3490; J7030; J7120; Q9967